=== PATIENT | male | born 1945 | race Caucasian/White ===

== ENCOUNTER 2021-02-05 21:54 | Emergency (ER) | payer MEDICARE, OTHER ==
[2021-02-05 23:06] LABS: HEMOGLOBIN 13.1 gm/dl (14.0-17.5); RED BLOOD COUNT 4.32 M/UL (4.20-5.50); WHITE BLOOD COUNT 10.9 K/UL (4.5-11.0)
[2021-02-05] MEDS ORDERED: FLOMAX 0.4 MG0.4 MG PO (23:28)
[2021-02-05] MEDS ORDERED: MACROBID 100 M100 MG PO (23:28)
== END 2021-02-06 00:04 | disposition home or self-care (01) ==
LOC: ER1 21:54
PROVIDERS: Physician Assistant Medical
DX: U07.1 COVID-19 (principal); R33.9 Retention of urine, unspecified; R34 Anuria and oliguria
CPT/HCPCS: 80053; 81001; 85025; 96372; 99283; J1100

== ENCOUNTER 2021-02-08 11:37 | Emergency (ER) | payer MEDICARE, OTHER ==
[~2021-02-08] VITALS: Ht 180.3 cm; Wt 90.7 kg
[~2021-02-08 11:37] MED LIST: FLOMAX 0.4 MG0.4 MG PO; MACROBID 100 M100 MG PO
[2021-02-08 12:54] LABS: HEMOGLOBIN 12.7 gm/dl (14.0-17.5); RED BLOOD COUNT 4.17 M/UL (4.20-5.50); WHITE BLOOD COUNT 11.5 K/UL (4.5-11.0)
[2021-02-08 13:22] LABS: BUN/CREATININE RATIO 20 (0-10)
[2021-02-08] MEDS ORDERED: DECADRON6 MG PO (14:25)
== END 2021-02-08 15:10 | disposition home or self-care (01) ==
LOC: ER1 11:37
PROVIDERS: Nurse Practitioner
DX: U07.1 COVID-19 (principal); J12.82 Pneumonia due to coronavirus disease 2019; Z23 Encounter for immunization; I11.9 Hypertensive heart disease without heart failure; I25.2 Old myocardial infarction; Z85.46 Personal history of malignant neoplasm of prostate; Z85.528 Personal history of other malignant neoplasm of kidney; Z95.5 Presence of coronary angioplasty implant and graft
CPT/HCPCS: 71045; 80053; 85025; 99283; M0245

== ENCOUNTER 2021-02-12 12:08 | Inpatient (IN) | payer MEDICARE, OTHER ==
[~2021-02-12] VITALS: Ht 180.3 cm; Wt 90.3 kg
[~2021-02-12 12:08] MED LIST changes: +DECADRON6 MG PO
[2021-02-12 13:08] LABS: HEMOGLOBIN 14.4 gm/dl (14.0-17.5); RED BLOOD COUNT 4.72 M/UL (4.20-5.50); WHITE BLOOD COUNT 14.9 K/UL (4.5-11.0)
[2021-02-12 13:34] LABS: BUN/CREATININE RATIO 22 (0-10)
[2021-02-12] MEDS ORDERED: LISINOPRIL30 MG PO (18:07)
[2021-02-12] MEDS ORDERED: ATORVASTATIN CA40 MG PO (18:07)
[2021-02-12] MEDS ORDERED: OMEPRAZOLE20 M1 PO (18:08)
[2021-02-12] MEDS ORDERED: ASCORBIC ACID500 MG PO (18:08)
[2021-02-12] MEDS ORDERED: VITAMIN B-121000 MCG PO (18:08)
[2021-02-13 05:04] LABS: HEMOGLOBIN 12.9 gm/dl (14.0-17.5); RED BLOOD COUNT 4.21 M/UL (4.20-5.50); WHITE BLOOD COUNT 15.4 K/UL (4.5-11.0)
[2021-02-13 05:32] LABS: BUN/CREATININE RATIO 28 (0-10)
[2021-02-14 06:59] LABS: HEMOGLOBIN 12.8 gm/dl (14.0-17.5); RED BLOOD COUNT 4.32 M/UL (4.20-5.50)
[2021-02-14 07:05] LABS: WHITE BLOOD COUNT 24.7 K/UL (4.5-11.0)
[2021-02-15 06:44] LABS: HEMOGLOBIN 12.4 gm/dl (14.0-17.5); RED BLOOD COUNT 4.15 M/UL (4.20-5.50); WHITE BLOOD COUNT 20.7 K/UL (4.5-11.0)
[2021-02-16 06:51] LABS: HEMOGLOBIN 12.7 gm/dl (14.0-17.5); RED BLOOD COUNT 4.18 M/UL (4.20-5.50); WHITE BLOOD COUNT 19.7 K/UL (4.5-11.0)
[2021-02-16] MEDS ORDERED: IPRAT-ALBUT 0.5-3 ML NEB (13:15)
[2021-02-16] MEDS ORDERED: ELIQUIS 5 MG TAB5 MG PO (13:15)
[2021-02-16] MEDS ORDERED: LISINOPRIL10 MG PO (13:15)
[2021-02-16] MEDS ORDERED: DECADRON6 MG PO (13:20)
[2021-02-16] MEDS ORDERED: HYDRALAZINE HCL25 MG PO (13:20)
[2021-02-16] MEDS ORDERED: VIBRAMYCIN 100100 MG PO (13:20)
[2021-02-16] MEDS ORDERED: OMNICEF 300 MG300 MG PO (13:20)
[2021-02-16] MEDS ORDERED: ASPIRIN EC81 MG PO (15:37)
== END 2021-02-16 17:18 | disposition home or self-care (01) | DRG 177 ==
LOC: ER1 12:08 → MED SURG 4 17:26 → CDU 17:26 → MED SURG 4 02-13 14:30
PROVIDERS: Internal Medicine; Nurse Practitioner; ADMIT Internal Medicine
PROC: B24BZZZ Ultrasonography of Heart with Aorta (ICD-10-PCS; principal; 2021-02-15)
DX: U07.1 COVID-19 (principal); J96.01 Acute respiratory failure with hypoxia; I26.94 Multiple subsegmental thrombotic pulmonary emboli without acute cor pulmonale; J12.82 Pneumonia due to coronavirus disease 2019; J15.9 Unspecified bacterial pneumonia; I10 Essential (primary) hypertension; I25.10 Atherosclerotic heart disease of native coronary artery without angina pectoris; I08.3 Combined rheumatic disorders of mitral, aortic and tricuspid valves; Z95.1 Presence of aortocoronary bypass graft; Z85.53 Personal history of malignant neoplasm of renal pelvis; Z79.01 Long term (current) use of anticoagulants; Z90.5 Acquired absence of kidney; Z80.0 Family history of malignant neoplasm of digestive organs; Z82.49 Family history of ischemic heart disease and other diseases of the circulatory system
CPT/HCPCS: ECHO; 36415; 36600; 71045; 80048; 80053; 82550; 82553; 82803; 83605; 83735; 83874; 83880; 84439; 84443; 84484; 85025; 85027; 85379; 85610; 85652; 85730; 86140; 87040; 93005; 93306; 93970; 94640; 94760; 96365; 96372; 96375; 99285; J0360; J0696; J1100; J1650; J7030; Q9967

== ENCOUNTER → 2021-05-12 | Outpatient (CLI) | payer MEDICARE, OTHER ==
[~2021-05-12] MED LIST changes: +ASCORBIC ACID500 MG PO; +ASPIRIN EC81 MG PO; +ATORVASTATIN CA40 MG PO; +ELIQUIS 5 MG TAB5 MG PO; +HYDRALAZINE HCL25 MG PO; +IPRAT-ALBUT 0.5-3 ML NEB; +LISINOPRIL10 MG PO; +LISINOPRIL30 MG PO; +OMEPRAZOLE20 M1 PO; +OMNICEF 300 MG300 MG PO; +VIBRAMYCIN 100100 MG PO; +VITAMIN B-121000 MCG PO
== END ==
LOC: EXRD 08:32
DX: Z13.6 Encounter for screening for cardiovascular disorders (principal); I77.811 Abdominal aortic ectasia
CPT/HCPCS: 76706